=== PATIENT | male | born 1970 | race Caucasian/White ===

== ENCOUNTER 2017-08-15 20:03 | Inpatient (IN) | payer BC ==
[~2017-08-15 20:03] MED LIST: ISOVUE-370 76%-LOCM 1 ML ONE
--- NOTE | 2017-08-15 21:50 | CT ---
BRAIN CT WITHOUT IV CONTRAST: 08/15/17 HISTORY: 47-year-old male with history of stroke, left sided facial droop. Last seen normal at [address] examination of the brain is performed. There is no focal mass or midline shift. No int ra or extra-axial hemorrhage. Sinuses and mastoids are clear. IMPRESSION: Unremarkable brain CT. Findings of the brain CT as well as the head CTA were discussed with Dr. Espinoza at 8:30 p.m. Code FRANKLIN POS: LENY
--- NOTE | 2017-08-15 21:55 | CT ---
CT ANGIOGRAM HEAD WITH 3D RENDERING CT ANGIOGRAM NECK WITH 3D RENDERING 08/15/17 HISTORY: 47-year-old male with history of left sided facial droop at 10 a.m. CTA HEAD WITH 3D RENDERING: No evidence for major branch occlusion. No evidence for aneurysm or other significant acute process. IMPRESSION: Unremarkable brain CTA. No evidence for occlusion or aneurysm. CT ANGIOGRAM NECK WITH 3D RENDERING: Visualized right and left vertebral, common carotid arteries, internal carotid arteries, and external carotid arteries appear unremarkable. No evidence for a hemodynamically significant stenosis. IMPRESSION: Unremarkable neck CTA. No evidence of carotid or vertebral artery significant stenosis. Findings were discussed with Dr. Espinoza at 8:30 p.m. Code CR POS: LENY
[2017-08-15 23:10] LABS: #Basophils 0.1 thou/uL (0.0-0.2); #Eosinphils 0.5 thou/uL (0.0-0.7); #Lymphocytes 3.9 thou/uL (1.20-3.40); #Monocytes 1.1 thou/uL (0.11-0.59); #Neutrophils 5.6 thou/uL (1.40-6.50); %Basophils 0.7 % (0.0-1.0); %Eosinophils 4.1 % (0.0-10.0); %Monocytes 9.9 % (0.0-10.0); %Neutrophils 50.3 % (42.0-75.0); Hemoglobin 17.6 g/dL (14.0-18.0); Mean Corpuscular HGB CONC 35.4 g/dL (32.0-36.0); Mean Corpuscular Volume 93.3 fl (80.0-94.0); Mean Platelet Volume 8.1 fL (7.4-10.4); Platelet Count 298 thou/uL (130-400); RBC Distribution Width 11.6 % (11.5-14.5); Red Blood Cell (RBC) Count 5.32 mill/uL (4.70-6.10); White Blood Cell (WBC) Count 11.1 thou/uL (4.8-10.8)
--- NOTE | 2017-08-15 23:11 | PDOC.PN ---
- Subjective Encounter Start Date: 08/15/17 Encounter Start Time: 22:45 Patient seen and examined. Note dictated. - Objective MAR Reviewed: Yes Result Diagrams: 08/15/17 20:06 08/15/17 20:06 Additional Labs: Accuchecks 08/15/17 20:10 POC Glucose 83 Laboratory Tests 08/15/17 20:06 Troponin I Less than 0.010 Radiology Reviewed by me: Yes (CT brain - neg) EKG Reviewed by me: Yes (SR) Phys Exam - Physical Examination Constitutional: NAD HEENT: PERRLA, moist MMs, sclera anicteric Neck: no nodes, no JVD, supple Respiratory: no wheezing, no rales, no rhonchi, clear to auscultation bilateral Cardiovascular: RRR, no rub Gastrointestinal: soft, non-tender, no distention, positive bowel sounds Musculoskeletal: no edema Neurological: non-focal, moves all 4 limbs Psychiatric: normal affect, A&O x 3 Skin: no rash Dx/Plan - Plan plan discussed w/ family, DVT proph w/SCDs * Dictated. Review of Systems - Review of Systems Constitutional: negative: fever, chills, sweats, weakness, malaise, other Eyes: negative: Pain, Vision Change, Conjunctivae Inflammation, Eyelid Inflammation, Redness, Other ENT: negative: Ear Pain, Ear Discharge, Nose Pain, Nose Discharge, Nose Congestion, Mouth Pain, Mouth Swelling, Throat Pain, Throat Swelling, Other Respiratory: negative: Cough, Dry, Shortness of Breath, Hemoptysis, SOB with Excertion, Pleuritic Pain, Sputum, Wheezing Cardiovascular: negative: chest pain, palpitations, orthopnea, paroxysmal nocturnal dyspnea, edema, light headedness, other Gastrointestinal: negative: Nausea, Vomiting, Abdominal Pain, Diarrhea, Constipation, Melena, Hematochezia, Other Genitourinary: negative: Dysuria, Frequency, Incontinence, Hematuria, Retention , Other Musculoskeletal: negative: Neck Pain, Shoulder Pain, Arm Pain, Back Pain, Hand Pain, Leg Pain, Foot Pain, Other Skin: negative: Rash, Lesions, Veto, Bruising, Other Neurological: Numbness, Confusion. negative: Weakness, Incoordination, Change in Speech, Seizures
[2017-08-15 23:15] LABS: PTT 32.9 SEC (22.9-36.1)
[2017-08-15 23:19] LABS: ALT (SGPT) 32 U/L (8-55); AST (SGOT) 23 U/L (5-34); Albumin 4.6 g/dL (3.5-5.0); Alkaline Phosphatase 55 U/L (40-150); Anion Gap 16 mmol/L (10-20); BUN (Urea Nitrogen) 20 mg/dL (8.9-20.6); Bilirubin, Total 0.7 mg/dL (0.2-1.2); Calc. Creatinine Clearance 0 mL/min (70-130); Calcium 9.7 mg/dL (7.8-10.44); Carbon Dioxide 24 mmol/L (22-29); Chloride 103 mmol/L (98-107); Estimated GFR-MDRD 88; Globulin 3.3 g/dL (2.4-3.5); Glucose 77 mg/dL (70-105); Potassium 3.7 mmol/L (3.5-5.1); Protein, Total 7.9 g/dL (6.0-8.3); Sodium 139 mmol/L (136-145)
[2017-08-15 23:24] LABS: CKMB 1.5 ng/mL (0-6.6); Troponin I Less than 0.010 ng/mL (< 0.028)
[2017-08-15 23:33] LABS: Bilirubin Negative (Negative); Blood, Urine Negative (Negative); Clarity CLEAR (Clear); Glucose, Urine (Dipstick) Negative (Negative); Leukocyte Negative (Negative); Nitrite Negative (Negative); Protein, Urine (Dipstick) Negative (Neg-Trace); Urobilinogen 0.2 mg/dL (0.2-1.0); pH, Urine 6.5 (5.0-9.0)
[2017-08-15 23:36] LABS: Specific Gravity, Urine 1.063 (1.002-1.036)
[2017-08-15 23:48] LABS: Hemoglobin A1c 4.8 % (4.0-6.0)
--- NOTE | 2017-08-16 00:08 | HP ---
DATE OF ADMISSION: 08/15/2017 The patient was seen on 08/15/2017. PRIMARY CARE PHYSICIAN: None. CHIEF COMPLAINT: Stroke like symptoms. HISTORY OF PRESENT ILLNESS: The patient is a 47-year-old male with hyperlipidemia, presented to the emergency room with stroke like symptoms. Over the last 24 hours, the patient has intermittent double vision. He sees 2 different images one o n the top and the other one at the bottom. This morning around 10:00 a.m. he felt different. He sta rted feeling some numbness in his left upper extremity and the left face along with headache that was more or less generalized. He also had some intermittent confusion. 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 He denies any weakness or numbness of any of his extremity. No seizures reported. In the emergency room, initial vital signs showed temperature 98.1, respirations 16, pulse 96, blood pressure 141/87 with O2 saturation 98% on room air. His initial NIH was 5. His CT scan of the brain and CT angiogram of the head and neck were essentially negative. He received aspirin in the emergen cy room. PAST MEDICAL HISTORY: Hyperlipidemia. PAST SURGICAL HISTORY: Reviewed with the patient and none. ALLERGIES: No known drug allergies. CURRENT HOME MEDICATIONS: Fish oil [id number]. SOCIAL HISTORY: The patient currently lives at home with his family. No smoking, alcohol, or drug u se. FAMILY HISTORY: Stroke on his mother's side. REVIEW OF SYSTEMS: Please refer to my progress note. PHYSICAL EXAMINATION: Please refer to my progress note. LABORATORY FINDINGS: Please refer to my progress note. IMPRESSION: 1. Acute cerebrovascular accident, suspected brain stem cerebrovascular accident. 2. Hyperlipidemia. 3. Double vision secondary to acute cerebrovascular accident. PLAN: The patient will be monitored in the stroke unit as an inpatient. MRI of the brain and echoca rdiogram will be obtained. His CTA of the head and neck were negative. We will continue neuro check s per protocol. The patient will be started on aspirin and statins. Lifestyle modification was emph asized. Lipid profile will be obtained. Plan of care was discussed with the patient and the family at the bedside, they stated understanding.
[2017-08-16] MEDS ORDERED: Senokot 8.6 MG TAB PO PRN (00:35)
[2017-08-16] MEDS ORDERED: hydrALAZINE 20 MG/ML VIAL SLOW IVP PRN (00:35)
[2017-08-16] MEDS ORDERED: Calcium Carbonate 500 MG ChewTAB PO PRN (00:35)
[2017-08-16] MEDS ORDERED: Eucerin (Mineral Oil/Petrolatum,White) 30 gm Jar TOP PRN (00:44)
[2017-08-16] MEDS ORDERED: Diabetic Tussin 200 MG/10 ML UDCUP PO PRN (00:44)
[2017-08-16] MEDS ORDERED: Labetalol HCl 100 MG/20 ML VIAL SLOW IVP PRN (00:44)
[2017-08-16] MEDS ORDERED: Polyethylene Glycol 3350 17 GM Packet PO PRN (00:44)
[2017-08-16] MEDS ORDERED: Ondansetron HCl/PF 4 MG/2 ML Vial IVP PRN (00:59)
[2017-08-16] MEDS ORDERED: Ondansetron ODT 4 MG TAB SL PRN (00:59)
[2017-08-16] MEDS: Sodium Chloride 0.9% 1,000 ML IV SCH ×2 (01:31→09:48)
[2017-08-16 01:56] VITALS: BMI 27.8
[2017-08-16 05:57] LABS: Cardiac Risk 7.6 (Less than 4.5)
[2017-08-16] MEDS: Aspirin 325 mg Enteric Coated Tablet PO SCH (09:47)
[2017-08-16] MEDS: Multivit, Therapeutic 1 TAB PO SCH (09:48)
[2017-08-16] MEDS: Pyridostigmine Bromide IR 60 MG TAB PO PRN ×2 (09:57→17:20)
--- NOTE | 2017-08-16 10:01 | CON ---
DATE OF CONSULTATION: 08/16/2017 CONSULTING PHYSICIAN: Hospitalist Service IMPRESSION: Diplopia and word finding difficulty of uncertain etiology at this point. PLAN: 1. MRI of the brain. 2. Acetylcholine receptor antibody. 3. Trial of Mestinon if the patient has recurrent symptoms. Mr. Lord is a 47-year-old man with no known medical history. 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 He started noticing he was having a little bit of difficulty norbert ding out loud. It seemed to him that his words were coming to him more slowly than he would have exp ected. He then apparently developed some double vision. This was not associated with any vertigo, n ausea, vomiting, slurred speech, difficulty swallowing, trouble chewing, lateralized weakness or numb ness. He came to the hospital last night for evaluation. His CT of the brain and CTAs were all unre markable. His lipid panel showed a poor ratio of around 7.4. His lab was otherwise unremarkable. H is symptoms are better now. He reports having a left-sided headache yesterday. PAST MEDICAL HISTORY: Otherwise, negative. FAMILY HISTORY: Noncontributory. SOCIAL HISTORY: No tobacco or alcohol use. ALLERGIES: None. REVIEW OF SYSTEMS: Otherwise, negative. PHYSICAL EXAMINATION: GENERAL: He is a healthy appearing middle-aged man in no distress. VITAL SIGNS: Stable. He has been afebrile. HEENT: Pupils equal and reactive. Conjunctivae clear. Oropharynx clear. NECK: Supple. EXTREMITIES: No cyanosis, clubbing or edema. NEUROLOGIC: He is alert and appropriate. His speech is fluent and clear. Cranial nerves appear to be intact. There is no ptosis present. Motor strength was full in all 4 extremities. Sensation is intact in the extremities as well. Reflexes were 1+ and symmetric. He could stand and walk independ ently. No tremor. Dysmetria is present. SUMMARY: This is a middle-aged man with minimal risk factors for vascular disease who presents with some double vision and subtle speech abnormalities. His exam at this point appears unremarkable. Co nsider the possibility of either multiple sclerosis, a small brainstem stroke or possibly myasthenia gravis. Follow up on the results of his testing.
[2017-08-16] MEDS: Acetaminophen 325 MG TAB PO PRN ×2 (11:54→17:20)
[2017-08-16] MEDS ORDERED: Pyridostigmine Bromide IR 60 MG TAB PO SCH (12:00)
--- NOTE | 2017-08-16 13:12 | MRI ---
MRI BRAIN WITHOUT CONTRAST: HISTORY: Left-sided deficits. Stroke. TIA. CORRELATION: Noncontrast CT scan of the brain from the previous night. FINDINGS: No restricted diffusion is seen. No evidence of infarct, hemorrhage, midline shift, or abnormal extr aaxial fluid collections is seen. The ventricular size is normal, and the basilar cisterns are paten t. There is mild mucosal disease in the paranasal sinuses. IMPRESSION: No evidence of acute intracranial process. POS: OFF
[2017-08-16] MEDS ORDERED: Atorvastatin Calcium 10 MG TAB PO SCH (21:00)
--- NOTE | 2017-08-17 00:08 | PDOC.PN ---
- Subjective Encounter Start Date: 08/16/17 Encounter Start Time: 19:00 Subjective: nsg notes rev, dom ovn, no new c/o, at bedside -: no new c/o overall feels better and wants to know when he will have a dx -: available and can go home - Objective Resuscitation Status: Resuscitation Status FULL:Full Resuscitation Vital Signs & Weight: Vital Signs (12 hours) Temp Pulse Resp BP Pulse Ox 08/16/17 23:34 98.1 F 70 20 94/64 97 08/16/17 19:59 98.4 F 74 24 H 123/81 96 08/16/17 19:52 98.1 F 70 20 97 08/16/17 15:18 98.0 F 71 14 101/67 97 Weight Weight 152 lb I&O: 08/15/17 08/16/17 08/17/17 06:59 06:59 06:59 Intake Total 940 1999 Balance 940 1999 Result Diagrams: 08/15/17 20:06 08/15/17 20:06 Phys Exam - Physical Examination Constitutional: NAD seated in hospital bed HEENT: PERRLA, moist MMs, sclera anicteric Neurological: moves all 4 limbs Psychiatric: normal affect Dx/Plan - Plan * 47M who pw L sided facial numbness * apprec neuro c/s * ssx significantly improved * reviewed CT and CTA results with patient and his diet: as anderson activity: as anderson dvt ppx Review of Systems - Medications/Allergies Allergies/Adverse Reactions: Allergies Allergy/AdvReac Type Severity Reaction Status Date / Time No Known Allergies Allergy Verified 08/16/17 01:51 Medications: Current Medications Acetaminophen (Tylenol) 650 mg PO Q4H PRN PRN Reason: Headache/Fever or Pain Last Admin: 08/16/17 17:20 Dose: 650 mg Aspirin (Ecotrin) 325 mg PO DAILY [facility] Last Admin: 08/16/17 09:47 Dose: 325 mg Atorvastatin Calcium (Lipitor) 10 mg PO HS [facility] Last Admin: 08/16/17 20:45 Dose: 10 mg Calcium Carbonate (Tums) 1,000 mg PO Q4H PRN PRN Reason: Heartburn or Indigestion Enoxaparin Sodium (Lovenox) 40 mg SC 2100 [facility] Guaifenesin (Robitussin Sf) 200 mg PO Q4H PRN PRN Reason: Cough Hydralazine HCl (Apresoline) 10 mg SLOW IVP Q4H PRN PRN Reason: BP > 180 Labetalol HCl (Normodyne) 10 mg SLOW IVP Q4H PRN PRN Reason: Systolic BP > 180 Mineral Oil/White Petrolatum (Eucerin Cream) 0 gm TOP BIDPRN PRN PRN Reason: Dry Skin Multivitamins (Theragran) 1 tab PO DAILY [facility] Last Admin: 08/16/17 09:48 Dose: 1 tab Polyethylene Glycol (Miralax) 17 gm PO DAILY PRN PRN Reason: Constipation Pyridostigmine [place] (Mestinon) 60 mg PO Q6H PRN PRN Reason: DIPLOPIA Last Admin: 08/16/17 17:20 Dose: 60 mg Senna (Senokot) 2 tab PO HSPRN PRN PRN Reason: Constipation Sodium Chloride (Flush - Normal Saline) 10 ml IVF PRN PRN PRN Reason: Saline Flush
[2017-08-17] MEDS: Multivit, Therapeutic 1 TAB PO SCH (09:00)
[2017-08-17] MEDS: Aspirin 325 mg Enteric Coated Tablet PO SCH (09:00)
[2017-08-17 09:17] VITALS: BP 114/77; TEMP 97.6
--- NOTE | 2017-08-17 10:14 | PDOC.PN ---
- Subjective Encounter Start Date: 08/17/17 Encounter Start Time: 09:45 Expresses no complaint. - Objective Resuscitation Status: Resuscitation Status FULL:Full Resuscitation Vital Signs & Weight: Vital Signs (12 hours) Temp Pulse Resp BP Pulse Ox 08/17/17 08:27 97.6 F 79 18 114/77 97 08/17/17 08:00 97.6 F 79 18 08/17/17 04:00 98.3 F 65 16 95/68 97 08/16/17 23:34 98.1 F 70 20 94/64 97 Weight Weight 152 lb I&O: 08/16/17 08/17/17 08/18/17 06:59 06:59 06:59 Intake Total 940 1999 420 Balance 940 1999 420 Result Diagrams: 08/15/17 20:06 08/15/17 20:06 Phys Exam - Physical Examination Constitutional: NAD HEENT: PERRLA Neck: no JVD Respiratory: clear to auscultation bilateral Cardiovascular: RRR Gastrointestinal: soft Musculoskeletal: no edema Neurological: moves all 4 limbs Psychiatric: A&O x 3 Dx/Plan (1) CVA (cerebral vascular accident) Code(s): I63.9 - CEREBRAL INFARCTION, UNSPECIFIED Status: Acute Plan: Home today with neurology follow up. Comment: Most likely multiple sclerosis Vs myasthenia gravis,.. No neurologic deficit at this time - Plan * .
[2017-08-17] MEDS ORDERED: Fish Oil 1,000 MG CAP PO SCH (21:00)
[2017-08-17] MEDS ORDERED: Atorvastatin Calcium 20 MG TAB PO SCH (21:00)
[2017-08-17] MEDS ORDERED: Enoxaparin Sodium 40 MG/0.4 ML SYRINGE SC SCH (21:00)
--- NOTE | 2017-08-19 15:51 | DIS ---
DATE OF ADMISSION: 08/16/2017 DATE OF DISCHARGE: 08/17/2017 ADMITTING DIAGNOSES: Acute cerebrovascular accident, hyperlipidemia, double vision secondary to cere brovascular accident. DISCHARGE DIAGNOSES: Myasthenia gravis vessels, multiple sclerosis. DIE EQUIPMENT OPERATOR: Dr. Herbert. PROCEDURES: Brain CT angiogram, head and neck CT angiogram, brain MRI, echocardiogram. COURSE OF HOSPITALIZATION: Uncomplicated, responded well to management. Patient is clinically stabl e, at this time being discharged home. He is to follow up with Dr. Herbert as outpatient. For disch arge medications, please see discharge medication reconciliation sheet. Patient is also to follow up with Dr. Herbert and also his primary care physician. Discharge time 32 minutes. For today's physical examination, please refer to patient's medical record progress note section.
== END 2017-08-17 11:02 | disposition home or self-care (01) | DRG 66 ==
LOC: ERS 20:03 → OBSVTOIN 08-16 00:28 → 2SE 08-16 00:28
PROVIDERS: ADMIT Internal Medicine; ATTEND Internal Medicine
DX: I63.9 Cerebral infarction, unspecified (principal); G70.00 Myasthenia gravis without (acute) exacerbation; G35 Multiple sclerosis; E78.5 Hyperlipidemia, unspecified; H53.2 Diplopia
CPT/HCPCS: 0042T; 36415; 36416; 70450; 70496; 70498; 70551; 80053; 80061; 81003; 82553; 82607; 82746; 83036; 83519; 84443; 84484; 85025; 85610; 85730; 93306; 99285; G8978-GP-CH; G8979-GP-CH; G8980-GP-CH; G8987-GO-CI; G8988-GO-CI; G8989-GO-CI; G9162-GN-CJ; G9163-GN-CH

== ENCOUNTER 2018-12-23 11:31 | Outpatient (CLI) | payer BC ==
--- NOTE | 2018-12-23 14:28 | CT ---
CT ABDOMEN WITH CONTRAST CT PELVIS WITH CONTRAST: 12/23/18 HISTORY: 48-year-old male with right lower quadrant abdominal pain. TECHNIQUE: IV injection of iodinated contrast media: 100 mL Isovue 370 Oral contrast media: PO Isovue FINDINGS: Liver: No focal solid mass. Spleen: No splenomegaly. Pancreas: No mass or surrounding fat stranding. Adrenals: No mass. Kidneys: No hydronephrosis or enhancement abnormalities. Ureters: No dilation. Bladder: No pathology identified. Abdominal aorta: No aneurysm. Small bowel: No dilation. Colon: No adjacent fat stranding. Appendix: No dilation or adjacent fat stranding. Free air: None. Free fluid: None. Large number of mildly enlarged mesenteric lymph nodes, located predominantly in the central portion of the abdominal cavity. IMPRESSION: 1. Mesenteric lymphadenitis. 2. Otherwise negative. 3. Normal appendix. jn [] POS: [facility]
== END 2018-12-23 11:32 | disposition home or self-care (01) ==
LOC: CT 11:31
PROVIDERS: ATTEND Internal Medicine Gastroenterology
DX: R10.31 Right lower quadrant pain (principal); G89.18 Other acute postprocedural pain; I88.0 Nonspecific mesenteric lymphadenitis
CPT/HCPCS: 74177